=== PATIENT | female | born 1990 | race Caucasian/White ===

== ENCOUNTER 2017-06-29 00:12 | Emergency (ER) | payer SELFPAY ==
[2017-06-29 00:20] VITALS: BP 131/81; BMI 27.3
[2017-06-29] MEDS ORDERED: XYLOCAINE 1 % (PLAIN) IM ONE (00:42)
[2017-06-29] MEDS ORDERED: ADACEL TDaP IM ONE ×2 (00:42→00:44)
[2017-06-29] MEDS ORDERED: XYLOCAINE 1 % (PLAIN) ONE (00:44)
--- NOTE | 2017-06-29 00:57 | DR.GENAD ---
HPI - PCP Primary Care Physician: NFD - HPI Comment HPI Comment: PATIENTS WAS BITTEN BY A FRIENDS DOG ANNIE. PATIENT SAID, DOG IS IMMUNIZE PER HER FRIEND. PATIENTS TD IS NOT UTD. - Complaint/Symptoms Chief Complaint Doctors Comments: DOG BITE. LACERATION ON RIGHT LOWER LEG. Chief Complaint:: DOG BITE TO RIGHT LOWER LEG Self Treatment fo Chief Complaint: NONE - Nurses notes reviewed Nurses Notes Review: Yes - Source History Provided: Patient - Mode of Arrival Mode of Arrival: Ambulatory - Timing Onset of Chief Complaint: 06/29/17 Came on: Suddenly - Duration Duration: Constant Duration: Hours - Severity Severity: Moderate PMH - PMH Past Medical History: No Past Surgical History: Yes Surgical History: - Family History History of Family Medical Conditions: Yes Family Medical History: Diabetes Mellitus, Cancer, [place], Hypertension - Social History Does patient currently use any type of tobacco product: Yes Have you used tobacco products in the last 12 months: Yes Type of Tobacco Use: Cigarettes Alcohol Use: None Do you use any recreational Drugs:: No Lives With: Family Lives Where: Home - infectious screening In the last 2 months have you had wt loss of >10#?: NO Have you had fever, night sweats or hemotysis?: No Have you traveled outside the country in the last 6 months?: No Isolation: Standard ROS - Review of Systems Constitutional: No Symptoms Reported Eyes: No Symptoms Reported ENTM: No Symptoms Reported Respiratoy: No Symptoms Reported Cardiovascular: No Symptoms Reported Gastrointestinal/Abdominal: No Symptoms Reported Genitourinary: No Symptoms Reported Neurological: No Symptoms Reported Musculoskeletal: Right, Leg Integumentary: Other (RT LEG 2CM LACERATION.) Hematologic/Lymphatic: No Symptoms Reported Endocrine: No Symptoms Reported All Other Systems: Reviewed and Negative PE - Vital Signs Vitals: Temperature 98.0 F Pulse Rate 90 Respiratory Rate 14 Blood Pressure [] 102/55 Blood Pressure [] 101/61 Blood Pressure 131/81 O2 Sat by Pulse Oximetry 97 - General Limitations: No Limitations General Appearance: Alert - Head Head Exam: Normal Inspection - Eyes Eye exam: Normal Appearance - ENT ENT Exam: Normal External Ear Exam External Ear Exam: Normal External Inspection TM/Canal Exam: Bilateral Normal Nose Exam: Normal Nose Exam Mouth Exam: Normal Inspection Throat Exam: Normal Inspection - Neck Neck Exam: Trachea Midline - Chest Chest Inspection: Symmetric Chest Wall Rise - Respiratory Respiratory Exam: Normal Lung Sounds Bilat Respiratory Exam: Bilateral Clear to Auscultation - Cardiovascular Cardiovascular Exam: Regular Rate, Normal Rhythm, Normal Heart Sounds - Abdominal Exam Abdominal Exam: Normal Bowel Sounds, Soft. negative: Tenderness - Extremities Extremities Exam: Tenderness (2CM LAC LOWER RT LEG.) - Back Back Exam: Normal Inspection - Neurologic Neurological Exam: Alert - Psychiatric Psychiatric Exam: Normal Affect, Normal Mood - Skin Skin Exam: Erythema MDM - Differential Diagnosis Differential Diagnosis: DOG BITE, LACERATION RT LEG. Course - Treatment Treatment: SEE ORDERS. LAC CLOSE IN ED. - Education/Counseling Education/Counseling: Patient, Education Educated On: Diagnosis, Needs for Follow Up Procedures - Laceration/Wound Repair Right Leg Wound Length (cm): 2 Wound's Depth, Shape: Linear Wound Explored: contaminated Betadine Prep?: Yes Anesthesia: 1% Lidocaine Volume Anesthetic (ccs): 3 Wound Debrided: minimal Wound Repaired With: sutures Suture Size/Type: 4:0, [place] Number of Sutures: 3 Layer Closure?: No Sterile Dressing Applied?: Yes Splint Applied?: No Sling Applied?: No - Diagnosis Discharge Problem: Laceration of right lower leg Qualifiers: Encounter type: initial encounter Qualified Code(s): S81.811A - Laceration without foreign body, right lower leg, initial encounter Dog bite Qualifiers: Encounter type: initial encounter Qualified Code(s): W54.0XXA - Bitten by dog, initial encounter - Discharge Plan Disposition: 01 HOME, SELF-CARE Condition: Stable Prescriptions: Amoxicillin/Potassium Clav [Augmentin 875-125 Tablet] 1 tab PO Q12H #20 tab Ibuprofen [MOTRIN TAB 800 MG *] 800 mg PO Q8H PRN #30 tab PRN Reason: Pain/Inflammation - Follow ups/Referrals Follow ups/Referrals: NFD,None [Primary Care Provider] - 3 days - Instructions Instructions: Animal Bite, Laceration Care, Adult, [id number] Additional Instructions: RETURN TO ED IF WORSE. SUTURE OUT IN 10 DAYS.
[2017-06-29] MEDS ORDERED: AUGMENTIN 500 MG/125 MG TAB PO ONE ×2 (01:19→01:24)
[2017-06-29] MEDS ORDERED: MOTRIN TAB 800 MG PO ONE ×2 (01:20→01:24)
== END 2017-06-29 01:36 | disposition home or self-care (01) ==
LOC: ER 00:12
PROC: 0YQHXZZ Repair Right Lower Leg, External Approach (ICD-10-PCS; principal; 2017-06-29)
DX: S81.811A Laceration without foreign body, right lower leg, initial encounter (principal); W54.0XXA Bitten by dog, initial encounter
CPT/HCPCS: 12001; 90471; 99282; J2001

== ENCOUNTER 2017-07-14 19:48 | Emergency (ER) | payer SELFPAY ==
[2017-07-14 19:55] VITALS: BP 106/53; BMI 26.6
--- NOTE | 2017-07-14 21:51 | DR.GENAD ---
HPI - PCP Primary Care Physician: NFD - Complaint/Symptoms Chief Complaint Doctors Comments: Patient state she was bitten by her friends' dog about two weeks ago and she came to the emergency room and they put three sutures in her laceration but she did not go back to the doctor to have them removed because she thought they came out by themselves. States she has been putting a cream on the laceration and taking Amoxicillin twice daily by the lesion has gotten redder arround the edges. She denies fever, chills, nausea or vomiting. States she do not have a local doctor. Chief Complaint:: "I THINK MY DOG BITE HAS GOT INFECTED. I HAVE BEEN TAKING THE AMOXICILLIN AND PUTTING THE CREAM ON IT. THE STITCHES CAME OUT ON THEIR OWN BEFORE I HAD A CHANCE TO COME GET THEM TAKEN OUT. I HAD A STITCHES A FEW WKS AGO." NOTE POSTERIOR RIGHT LOWER LEG WITH SCAB, REDNESS AROUND AREA AND POSSIBLE 2 STITCHES STILL INTACT. - Nurses notes reviewed Nurses Notes Review: Yes - Source History Provided: Patient - Mode of Arrival Mode of Arrival: Ambulatory - Timing Onset of Chief Complaint: 07/14/17 Came on: Gradually - Duration Duration: Constant How lon Duration: Weeks - Location Location: right lower leg - Severity Severity: Mild - Modifying Factors Worsens:: nothing Improves:: nothing PMH - PMH Past Medical History: No Past Surgical History: Yes Surgical History: - Family History History of Family Medical Conditions: Yes Family Medical History: Diabetes Mellitus, Cancer, [place], Hypertension - Social History Does patient currently use any type of tobacco product: No Have you used tobacco products in the last 12 months: No Type of Tobacco Use: None Does any household member use tobacco: No Alcohol Use: None Do you use any recreational Drugs:: No Lives With: Family Lives Where: Home - infectious screening Have you traveled outside the country in the last 6 months?: No Isolation: Standard ROS - Review of Systems Constitutional: No Symptoms Reported. negative: See HPI, Chills, Diaphoresis, Fever, Malaise, Weakness, Irritable, Fatigue, Loss of Appetite, Other Eyes: No Symptoms Reported ENTM: No Symptoms Reported Respiratoy: No Symptoms Reported. negative: See HPI, Productive Cough, Non- Productive Cough, Moist Cough, Dry Cough, Hacking Cough, Barking Cough, Brassy Cough, Orthopnea, Short of Breath, Stridor, Wheezing, Hemoptysis, Other Cardiovascular: No Symptoms Reported Gastrointestinal/Abdominal: No Symptoms Reported Genitourinary: No Symptoms Reported Neurological: No Symptoms Reported Musculoskeletal: No Symptoms Reported, Right, Leg (healing laceration with scabbing) Integumentary: No Symptoms Reported, Change in Color, Lesions, Wound Hematologic/Lymphatic: No Symptoms Reported. negative: See HPI, Anemia, Blood Clots, Easy Bleeding, Easy Bruising, Swollen Glands, Lymphadenopathy, Other Endocrine: No Symptoms Reported Psychiatric: No Symptoms Reported PE - Vital Signs Vitals: Temperature 98.5 F Pulse Rate 85 Respiratory Rate 16 Blood Pressure [Right Arm] 102/55 Blood Pressure [Left Arm] 101/61 Blood Pressure 106/53 O2 Sat by Pulse Oximetry 97 - General Limitations: No Limitations General Appearance: Alert, In No Apparent Distress - Head Head Exam: Normal Inspection, Atraumatic, Normocephalic - Eyes Eye exam: Normal Appearance, PERRL, EOMI. negative: Scleral Icterus, Conjunctival Injection, Nystagmus, Miosis, Mydrasis, Periorbital Swelling, Periorbital Tenderness, Other - ENT ENT Exam: Normal Exam, Normal Oropharynx, Normal External Ear Exam, Mucous Membranes Moist, TM's Normal Bilaterally External Ear Exam: Normal External Inspection TM/Canal Exam: Bilateral Normal Nose Exam: Normal Nose Exam Mouth Exam: Normal Inspection. negative: Drooling, Trismus, Lip Swelling, Tongue Elevation, Tongue Swelling, Laceration, Other Throat Exam: Normal Inspection. negative: Tonsillar Erythema, Tonsillomegaly, Tonsillar Exudate, R Peritonsillar Mass, L Peritonsillar Mass, Muffled Voice, Other - Neck Neck Exam: Normal Inspection, Full ROM, Trachea Midline - Chest Chest Inspection: Normal Inspection, Symmetric Chest Wall Rise - Respiratory Respiratory Exam: Normal Lung Sounds Bilat. negative: Accessory Muscle Use, Chest Wall Tenderness, Prolonged Expiratory Phase, Respiratory Distress, Stridor , Other Respiratory Exam: Bilateral Clear to Auscultation - Cardiovascular Cardiovascular Exam: Regular Rate, Normal Rhythm, Normal Heart Sounds - Abdominal Exam Abdominal Exam: Normal Inspection, Normal Bowel Sounds, Soft Abdominal Tenderness: negative: RUQ, RLQ, LUQ, LLQ, Epigastrium, Suprapubic, Diffuse, Mild, Moderate, Severe, Other - Extremities Extremities Exam: Normal Inspection, Full ROM, Tenderness (right lower leg with 3 1/2 cm healing lesion with scabbing; one suture noted top of lesion), Normal Capillary Refill. negative: Edema, Joint Swelling - Back Back Exam: Normal Inspection, Full ROM, Tenderness - Neurologic Neurological Exam: Alert, Oriented X3, CN II-XII Intact, Normal Gait, Reflexes Normal - Psychiatric Psychiatric Exam: Normal Affect, Normal Mood. negative: Depressed, Agitated, Anxious, Flat Affect, Manic, Homicidal Ideation, Suicidal Ideation, Other - Skin Skin Exam: Warm, Dry, Intact, Normal Color ROR - Labs Reviewed Laboratory Results Reviewed?: Yes (all lx-ray results reviewed and discussed with patient) - XRAY XRAY Interpreted by: Radiologist (right leg: No foreign body identified.) - Diagnosis Discharge Problem: Cellulitis of right leg, Dog bite of extremity - Discharge Plan Disposition: 01 HOME, SELF-CARE Condition: Stable Prescriptions: Cephalexin [KEFLEX CAP 500 MG *] 500 mg PO TID #30 cap Sulfamethoxazole-Trimethoprim [BACTRIM DS TAB 800/160 MG *] 1 tab PO BID #20 tab - Follow ups/Referrals Follow ups/Referrals: NFD,None [Primary Care Provider] - 3 days ROS BURNETTE [STAFF PHYSICIAN] - 3 days - Instructions Instructions: Cellulitis, Adult, [id number], Animal Bite, MRSA Infection, Pediatric
--- NOTE | 2017-07-14 22:14 | RAD ---
Right tibia and fibula, two views Indication: Old dog bite to posterior calf Comparison: None Findings: No acute fracture or malalignment is identified. There appears to be a soft tissue lacerati on to the posterior inferior lower leg. No radiopaque foreign body is identified. Impression: Soft tissue injury to the posterior inferior lower leg without acute fracture or radiopaq ue foreign body. Reported By:
[2017-07-14] MEDS ORDERED: KEFLEX CAP 500 MG PO ONE ×2 (22:15→22:29)
[2017-07-14] MEDS ORDERED: BACTRIM DS TAB PO ONE ×2 (22:15→22:29)
[2017-07-14] MEDS ORDERED: NEOSPORIN OINT ONE (22:35)
== END 2017-07-14 22:37 | disposition home or self-care (01) ==
LOC: ER 19:58
DX: L03.115 Cellulitis of right lower limb (principal); S81.851A Open bite, right lower leg, initial encounter; W54.0XXA Bitten by dog, initial encounter; Y92.89 Other specified places as the place of occurrence of the external cause
CPT/HCPCS: 73590; 99282

== ENCOUNTER 2019-11-21 17:58 | Inpatient (IN) ==
[2019-11-21] MEDS ORDERED: ZOFRAN INJ 4 MG VIAL IVP ONE (20:29)
[2019-11-21] MEDS ORDERED: NS 1000 ML 1,000 ML IV ONE ×2 (20:29→20:35)
[2019-11-21] MEDS ORDERED: CIPRO IV 400 MG PREMIX* 400 MG/200 ML IV.SOLN. IV ONE ×2 (20:32→20:53)
--- NOTE | 2019-11-21 20:35 | DR.URINEF ---
HPI Time Seen Time Seen by Provider: 11/21/19 20:24 PCP Primary Care Physician: JUDITH HPI Comment HPI Comment: Discharged from [facility] after left ureteral stenting 2 weeks ago on Keflex PO, now with fever, vomiting, weakness, chills. Previously placed right ureteral stent. Currently menstruating, denies tampon use. Complaint Chief Complaint:: PT C/O FEVER , ( 104,0 ) PT TAKING ABX FOR UTI AND RECENTS STENTS PLACED FOR RENAL STONES ,BR N/V CAN'T KEEP ANYTHING DOWN ..BR COVID-19 Coronavirus risk:travel/contact w/high risk person: No Has patient experienced Coronavirus symptoms: No Source History Provided: Patient Mode of Arrival Mode of Arrival: Ambulatory Timing Onset of Chief Complaint: 11/21/19 PMH PMH Past Medical History: Yes Past Medical History: Kidney Stones Past Surgical History: Yes Surgical History: Lithotripsy Family History History of Family Medical Conditions: No Family Medical History: Diabetes Mellitus Social History Does patient currently use any type of tobacco product: No Have you used tobacco products in the last 12 months: No Type of Tobacco Use: None Does any household member use tobacco: No Alcohol Use: None Do you use any recreational Drugs:: No Lives With: Family Lives Where: Home Travel Risk Coronavirus risk:travel/contact w/high risk person: No Has patient experienced Coronavirus symptoms: No Infectious screening In the last 2 months have you had wt loss of >10#?: NO Have you had fever, night sweats or hemotysis?: No Have you traveled outside the country in the last 6 months?: No Isolation: Standard ROS Review of Systems Constitutional: See HPI Eyes: No Symptoms Reported ENTM: No Symptoms Reported Respiratoy: No Symptoms Reported Cardiovascular: No Symptoms Reported Gastrointestinal/Abdominal: See HPI Genitourinary: No Symptoms Reported Neurological: No Symptoms Reported Musculoskeletal: No Symptoms Reported Integumentary: No Symptoms Reported Hematologic/Lymphatic: No Symptoms Reported Endocrine: No Symptoms Reported Psychiatric: No Symptoms Reported All Other Systems: Reviewed and Negative PE Vital Signs Vitals: Temperature 99.5 F Pulse Rate 118 Respiratory Rate 20 Blood Pressure [Right Arm] 110/88 Blood Pressure [Left Arm] 101/61 Blood Pressure 117/64 O2 Sat by Pulse Oximetry 94 General Limitations: No Limitations General Appearance: Lethargic and Other (Toxic appearing) Eyes Eye exam: Normal Appearance ENT ENT Exam: Normal Exam Neck Neck Exam: Normal Inspection Chest Chest Inspection: Normal Inspection Respiratory Respiratory Exam: Normal Lung Sounds Bilat Respiratory Exam: Bilateral: Clear to Auscultation Cardiovascular Cardiovascular Exam: Normal Rhythm and Tachycardia Abdominal Exam Abdominal Exam: Normal Inspection, Normal Bowel Sounds and Soft Rectal Rectal Exam: Deferred Genitourinary External Exam: Female: Deferred : Speculum Exam (Female): Deferred : Bimanual Exam (female): Deferred Extremities Extremities Exam: Normal Inspection Back Back Exam: Normal Inspection and Full ROM; negative (R) CVA Tenderness and (L) CVA Tenderness Neurologic Neurological Exam: Alert and Oriented X3 Psychiatric Psychiatric Exam: Normal Affect and Normal Mood Skin Skin Exam: Warm, Dry, Intact and Normal Color COURSE Treatment Treatment: Fluids immediately started, tachycardia improved. Patient with borderline BP, lekocytosis of 29 (change from 19 yesterday), and DUGLAS 1.68 (yesterday 1.49). She is tachycardic 125. Meets both SIRS and qSOFA x 2 criteria for sepsis, lactate 2.1. Cipro and Vanc given empirically. Concern for stents as a source, and no urology clinical operations consultant at our facility for source control. CT AB limited with no contrast, however, no eric fluid collections concerning for abscess, nor hydronephrosis concerning for obstructive uropathy is seen. [facility] denies transfer back due to diversion. Spoke with Dr. Ram, urology @ [facility] who said it is out of his hands if his institution won't accept the patient. Attempted multiple institutions with materials planning analyst services and all were on divert. Discussed the case with hospitalist Dr. Scherer, and he agreed to accept to ICU, as no higher level facility is available in our area at this time. Reevaluation 1st: Improved ROR Labs Reviewed Result Diagrams: 11/21/19 20:45 11/21/19 20:45 Laboratory: WBC 29.1 X10^3/uL (3.6-10.0) H D 11/21/19 20:45 RBC 4.72 X10^6/uL (3.5-5.4) 11/21/19 20:45 Hgb 13.3 g/dL (12.0-16.0) 11/21/19 20:45 Hct 39.2 % (36.0-47.0) 11/21/19 20:45 MCV 83.1 fL (80.0-100.0) 11/21/19 20:45 MCH 28.1 pg (27.0-34.0) 11/21/19 20:45 MCHC 33.8 g/dL (33.0-35.0) 11/21/19 20:45 RDW 15.2 % (11.6-16.5) 11/21/19 20:45 Plt Count 311 X10^3/uL (150.0-450.0) 11/21/19 20:45 Plt Count Comment Adequate (ADEQUATE) 11/21/19 20:45 MPV 8.2 fL (7.4-11.0) 11/21/19 20:45 Neut % (Auto) 89.2 % (42.0-75.0) H 11/21/19 20:45 Lymph % (Auto) 5.7 % (21.0-51.0) L 11/21/19 20:45 [place] % (Auto) 4.7 % (0.0-13.0) 11/21/19 20:45 Eos % (Auto) 0.0 % (0.9-2.9) L 11/21/19 20:45 Baso % (Auto) 0.4 % (0.2-1.0) 11/21/19 20:45 Neut # (Auto) 26.0 x10^3/uL (2.2-4.8) H 11/21/19 20:45 Lymph # (Auto) 1.7 X10^3/uL (1.3-2.9) 11/21/19 20:45 [place] # (Auto) 1.4 x10^3/uL (0.3-0.8) H 11/21/19 20:45 Eos # (Auto) 0.0 x10^3/uL (0.0-0.2) 11/21/19 20:45 Baso # (Auto) 0.1 X10^3/uL (0.0-0.1) 11/21/19 20:45 Absolute Nucleated RBC 0.1 /100WBC 11/21/19 20:45 Total Counted 100 11/21/19 20:45 Neutrophils % (Manual) 80 % (39-76) H 11/21/19 20:45 Band Neutrophils % 7 % (0-10) 11/21/19 20:45 Lymphocytes % (Manual) 7 % (13-43) L 11/21/19 20:45 Monocytes % (Manual) 4 % (4-9) 11/21/19 20:45 Metamyelocytes % 1 11/21/19 20:45 Myelocytes % 1 11/21/19 20:45 Plt Morphology Comment Normal (NORMAL) 11/21/19 20:45 RBC Morphology Normal (NORMAL) 11/21/19 20:45 Sodium 122 mmol/L (136-145) L* 11/21/19 20:45 Corrected Sodium 123 mmol/L (136-145) L 11/21/19 20:45 Potassium 3.0 mmol/L (3.5-5.1) L* 11/21/19 20:45 Chloride 90 mmol/L (98-107) L 11/21/19 20:45 Carbon Dioxide 24.0 mmol/L (21-32) 11/21/19 20:45 BUN 11 mg/dL (7-18) 11/21/19 20:45 Creatinine 1.68 mg/dL (0.55-1.02) H 11/21/19 20:45 Est GFR (MDRD) Af Amer 46 (>60) L 11/21/19 20:45 Est GFR (MDRD) Non-Af 38 (>60) L 11/21/19 20:45 Glucose 125 mg/dL (65-99) H 11/21/19 20:45 Lactic Acid 2.1 mmol/L (0.4-2.0) H 11/21/19 20:45 Calcium 8.4 mg/dL (8.5-10.1) L 11/21/19 20:45 Corrected Calcium 9.0 mg/dL (8.5-10.1) 11/21/19 20:45 Magnesium 1.0 mg/dL (1.7-2.9) L 11/21/19 20:45 Total Bilirubin 0.60 mg/dL (0.2-1.0) 11/21/19 20:45 AST 25 Units/L (15-37) 11/21/19 20:45 ALT 31 Units/L (12-78) 11/21/19 20:45 Alkaline Phosphatase 120 Units/L (46-116) H 11/21/19 20:45 Total Protein 7.7 g/dL (6.4-8.2) 11/21/19 20:45 Albumin 3.2 g/dL (3.4-5.0) L 11/21/19 20:45 Globulin 4.5 g/dL (2.5-4.5) 11/21/19 20:45 Albumin/Globulin Ratio 0.7 Ratio (1.1-2.1) L 11/21/19 20:45 Lipase 72 Units/L (73-393) L 11/21/19 20:45 SARS-CoV-2 (PCR) Negative (NEGATIVE) 11/21/19 23:45 EKG [place]: Normal Rhythm: NSR Block: None Hypertrophy: None ST: Normal Opioid Opioid Risk Tool Age (Javier box if 16-45): No History of Preadolescent Sexual Abuse: No Total: 0 Total Score Risk Category: Low Risk Copyright: Zechariah LUQUE predicting aberrant behaviors Diagnosis Discharge Problem: Hypokalemia, Acute hyponatremia, Hypomagnesemia Sepsis Qualifiers: Sepsis type: sepsis due to unspecified organism Sepsis acute organ dysfunction status: with acute organ dysfunction Severe sepsis acute organ dysfunction type: acute renal failure Acute renal failure type: unspecified Severe sepsis shock status: unspecified Qualified Code(s): A41.9 - Sepsis, unspecified organism
[2019-11-21] MEDS ORDERED: ZOFRAN INJ 4 MG VIAL ONE (20:52)
[2019-11-21] MEDS ORDERED: NS 1000 ML 1,000 ML ONE ×2 (20:52→23:18)
[2019-11-21 21:01] LABS: BASOPHILS # (AUTO) 0.1 X10^3/uL (0.0-0.1); BASOPHILS % (AUTO) 0.4 % (0.2-1.0); HEMATOCRIT 39.2 % (36.0-47.0); HEMOGLOBIN 13.3 g/dL (12.0-16.0); LYMPHOCYTES # (AUTO) 1.7 X10^3/uL (1.3-2.9); LYMPHOCYTES % (AUTO) 5.7 % (21.0-51.0); MEAN CORPUSCULAR HEMOGLOBIN 28.1 pg (27.0-34.0); MEAN CORPUSCULAR HGB CONC 33.8 g/dL (33.0-35.0); MEAN CORPUSCULAR VOLUME 83.1 fL (80.0-100.0); MEAN PLATELET VOLUME 8.2 fL (7.4-11.0); MONOCYTES # (AUTO) 1.4 x10^3/uL (0.3-0.8); MONOCYTES % (AUTO) 4.7 % (0.0-13.0); NEUTROPHILS % (AUTO) 89.2 % (42.0-75.0); PLATELET COUNT 311 X10^3/uL (150.0-450.0); RED BLOOD COUNT 4.72 X10^6/uL (3.5-5.4); RED CELL DISTRIBUTION WIDTH 15.2 % (11.6-16.5); WHITE BLOOD COUNT 29.1 X10^3/uL (3.6-10.0)
[2019-11-21 21:19] LABS: CALCIUM 8.4 mg/dL (8.5-10.1); CREATININE 1.68 mg/dL (0.55-1.02)
[2019-11-21 21:23] LABS: ALBUMIN 3.2 g/dL (3.4-5.0); TOTAL PROTEIN 7.7 g/dL (6.4-8.2)
[2019-11-21 21:24] LABS: LACTIC ACID 2.1 mmol/L (0.4-2.0)
[2019-11-21 21:33] LABS: BAND NEUTROPHILS % 7 % (0-10); METAMYELOCYTES % 1; MYELOCYTES % 1; PLATELET MORPHOLOGY COMMENT NORMAL (NORMAL)
[2019-11-21] MEDS ORDERED: MAGNESIUM SULFATE 50% INJ VIAL IV ONE (21:33)
[2019-11-21] MEDS ORDERED: VANCOMYCIN IV *PREMIX 1 G/200 ML BAG 1 G/200 ML PIGGYBACK IV ONE (21:46)
[2019-11-21] MEDS ORDERED: MAGNESIUM SULFATE 1 GRAM/100 mL PREMIX 2 G/200 ML BAG IV ONE (22:05)
--- NOTE | 2019-11-21 22:56 | CT ---
HISTORYabcess, utiSTUDYABDOMEN/PELVIS W/O [id number] axial images of the abdomen and pelvis were obtained from the lung bases to the pubic symphysis without IV contrast. Coronal and sagittal reformats obtained. Dose reduction techniques including Automated Exposure Control (AEC) and adjustment of mA and kV were utilized.FINDINGSLack of intravenous contrast compromises evaluation of solid organs and vasculature.Thoracic: Included images of the lower chest demonstrate no abnormalities.Hepatobiliary: The liver is unremarkable without focal lesion. Question layering sludge within the gallbladder.Pancreas: No abnormality identified in the pancreas.Spleen: No abnormality identified in the spleen.Adrenals: No abnormality identified in either adrenal glandGenitourinary: Nonspecific mild bilateral perinephric stranding. Interval placement of a right nephroureteral stent with significant decrease and right perinephric stranding/inflammatory changes. 9 mm soft tissue nodule posterior to the right kidney. Again seen are numerous bilateral renal stones. Left nephroureteral stent in place. No hydronephrosis of either kidneys. Along the distal stent bilaterally, there ureteral stones, measuring 6 mm on the right and 7 mm on the left.. evaluation of the bladder is limited, but no obvious bladder abnormality is present. Uterus is present.Gastrointestinal: Air-fluid levels seen throughout the colon. No colonic wall thickening or pericolonic inflammatory changes. No small bowel dilatation. The appendix is normal .Vascular/Lymphatics: No bulky adenopathy. Abdominal aorta is normal in caliber. No atherosclerotic calcification.Peritoneum/Other: [No extraluminal air.] [No extraluminal fluid. ]MSK/Body Wall: No concerning bony lesion identified.IMPRESSIONInterval placement of a right nephroureteral stent with significant decrease in perinephric stranding. Stable position of a left nephroureteral stent. Distal ureteral stones noted bilaterally, as detailed, without hydronephrosis or hydroureter identified.Numerous bilateral renal stones again seen.Air-fluid levels seen throughout the colon may be correlated clinically for diarrheal state. No colonic wall thickening or pericolonic inflammatory changes.Ancillary findings as detailed.Electronically signed by: Augusta Hassan (Nov 21, 2019 22:55:16)
[2019-11-21] MEDS ORDERED: VANCOMYCIN 1 GRAM PREMIX (ADDVANTAGE) 250 ML IV ONE (23:30)
[2019-11-22] MEDS: NS 1000 ML 1,000 ML IV SCH ×5 (00:41→23:09)
[2019-11-22] MEDS ORDERED: POTASSIUM CHL 40 MEQ/NS 0.45% 500 ML 40 MEQ/500 ML BAG IV PRN (01:02)
[2019-11-22] MEDS ORDERED: PHARMACY CONSULT - VANCOMYCIN XX SCH (01:02)
[2019-11-22] MEDS ORDERED: MAGNESIUM SULFATE 50% INJ VIAL IV ONE (01:02)
[2019-11-22] MEDS ORDERED: ZOFRAN INJ 4 MG VIAL IVP PRN (01:02)
[2019-11-22] MEDS ORDERED: MERREM VIAL 1 G in NS 100 ML IV + SPIKE MINIBAG* 100 ML IV SCH ×2 (01:02→09:00)
--- NOTE | 2019-11-22 01:53 | RAD ---
Chest AP portableIndication: SepsisComparison November 20, 2019FINDINGSThere is no pneumothorax, effusion or dense consolidation. Heart size is normal.IMPRESSIONNo acute chest process.Electronically signed by: COOKIE MUÑOZ (Nov 22, 2019 01:52:20)
[2019-11-22] MEDS ORDERED: MAGNESIUM SULFATE 1 GRAM/100 mL PREMIX 2 G/200 ML BAG IV ONE (02:16)
[2019-11-22] MEDS ORDERED: TYLENOL 500 MG TAB EXTRA STRENGTH PO ONE (02:18)
[2019-11-22] MEDS ORDERED: MERREM VIAL ONE (02:18)
[2019-11-22] MEDS ORDERED: NS 100 ML IV 0 ML IV ONE (02:19)
[2019-11-22] MEDS ORDERED: NS 100 ML IV + SPIKE MINIBAG* 100 ML IV ONE (02:33)
[2019-11-22] MEDS: TYLENOL 500 MG TAB EXTRA STRENGTH PO PRN (02:43)
[2019-11-22 03:36] LABS: BILIRUBIN,URINE NEGATIVE (NEGATIVE); BLOOD/HEMOGLOBIN,URINE 4+ (NEGATIVE); GLUCOSE, URINE NEGATIVE (NEGATIVE); KETONES,URINE NEGATIVE (NEGATIVE); LEUKOCYTE ESTERASE ,URINE 3+ (NEGATIVE); NITRITES,URINE POSITIVE (NEGATIVE); PROTEIN,URINE 2+ (NEGATIVE); UROBILINOGEN,URINE NORMAL (NORMAL)
[2019-11-22 03:38] LABS: CREATININE,URINE 75.47 mg/dL (29-226); SODIUM,URINE 29 mmol/L (40-220)
[2019-11-22 03:47] LABS: APPEARANCE,URINE CLOUDY (CLEAR); COLOR,URINE PALE YELLOW (YELLOW)
[2019-11-22 03:48] LABS: BACTERIA,URINE 3+ /HPF (NEGATIVE); RBC,URINE 0-2 /HPF (0-3); SQUAMOUS EPITHELIAL CELL,UR FEW /HPF (NEGATIVE)
[2019-11-22] MEDS ORDERED: K-RIDER 10 MEQ/NS 100 ML 10 MEQ/100 ML BAG IV ONE (04:48)
[2019-11-22] MEDS ORDERED: K-RIDER 10 MEQ/NS 100 ML 10 MEQ/100 ML BAG IV PRN (05:02)
[2019-11-22] MEDS ORDERED: K-DUR TAB 20 MEQ PO ONE (05:31)
[2019-11-22 05:51] LABS: BASOPHILS # (AUTO) 0.1 X10^3/uL (0.0-0.1); BASOPHILS % (AUTO) 0.6 % (0.2-1.0); HEMATOCRIT 32.8 % (36.0-47.0); HEMOGLOBIN 11.1 g/dL (12.0-16.0); LYMPHOCYTES # (AUTO) 1.1 X10^3/uL (1.3-2.9); LYMPHOCYTES % (AUTO) 5.2 % (21.0-51.0); MEAN CORPUSCULAR HEMOGLOBIN 27.9 pg (27.0-34.0); MEAN CORPUSCULAR HGB CONC 33.9 g/dL (33.0-35.0); MEAN CORPUSCULAR VOLUME 82.3 fL (80.0-100.0); MEAN PLATELET VOLUME 9.1 fL (7.4-11.0); MONOCYTES # (AUTO) 1.5 x10^3/uL (0.3-0.8); MONOCYTES % (AUTO) 7.3 % (0.0-13.0); NEUTROPHILS # (AUTO) 18.5 x10^3/uL (2.2-4.8); NEUTROPHILS % (AUTO) 86.9 % (42.0-75.0); PLATELET COUNT 260 X10^3/uL (150.0-450.0); RED BLOOD COUNT 3.98 X10^6/uL (3.5-5.4); RED CELL DISTRIBUTION WIDTH 14.8 % (11.6-16.5); WHITE BLOOD COUNT 21.2 X10^3/uL (3.6-10.0)
[2019-11-22 05:54] LABS: ALBUMIN 2.6 g/dL (3.4-5.0); CALCIUM 7.9 mg/dL (8.5-10.1); CREATININE 1.67 mg/dL (0.55-1.02); MAGNESIUM 2.3 mg/dL (1.7-2.9); TOTAL PROTEIN 6.3 g/dL (6.4-8.2)
[2019-11-22] MEDS: K-DUR TAB 20 MEQ PO PRN ×2 (05:55→08:53)
[2019-11-22 06:43] LABS: PLATELET MORPHOLOGY COMMENT NORMAL (NORMAL)
[2019-11-22] MEDS ORDERED: FIORICET TAB PO PRN (10:08)
[2019-11-22] MEDS: LEVAQUIN PREMIX IV 750 MG 750 MG/150 ML BAG IV SCH (11:00)
[2019-11-22] MEDS: FORTAZ or TAZICEF VIAL INJ 1 G in NS 100 ML IV + SPIKE MINIBAG* 100 ML IV SCH ×3 (11:00→22:00)
[2019-11-22] MEDS: TORADOL 30 MG VIAL IVP SCH ×2 (11:01→21:00)
--- NOTE | 2019-11-22 13:50 | DR.H&P ---
H&P - History & Physical for Day of: H&P Date: 11/22/19 - Chief Complaint Chief Complaint: FEVER, NAUSEA, VOMITING - History of Present Illness History of Present Illness: IS A 29 YEAR OLD PATIENT OF OURS WHO PRESENTED TO THE ER WITH COMPLAINTS OF FEVER, NAUSEA, AND VOMITING. SYMPTOMS REPORTEDLY STARTED ONE DAY PRIOR. PATIENT REPORTS PLACEMENT OF A LEFT URETERAL STONE APPROXIMATELY TWO WEEKS AGO. SHE ALSO HAS A PREVIOUSLY PLACED RIGHT URETERAL STENT. SHE HAS BEEN TAKING KEFLEX PO FOR TREATMENT OF A URINARY TRACT INFECTION. SHE ADMITS TO FEVER OF 104.0 AT HOME. SHE DENIES PMH OTHER THAN KIDNEY STONES AND LITHROTRIPSY. ON ARRIVAL TO THE ER, VITALS WERE 99.5-118-20-99%-114/56. LABS WERE OBTAINED. ABNORMAL LAB VALUES INCLUDE THE FOLLOWING: WBC 29.1, SODIUM 122, POTASSIUM 3.0, CHLORIDE 90, CREATININE 1.68, GLUCOSE 125, LACTIC ACID 2.1, CALCIUM 8.4, ALK PHOS 120, ALBUMIN 3.2, LIPASE 72. A URINALYSIS WAS OBTAINED AND REVEALED: WBC TNTC, RBC 0-2, LEUKOCYTES 3+, BACTERIA 3+, NITRITE POSITIVE. URINE AND BLOOD CULTURES WERE SET UP. AN ABDOMEN/PELVIS CT WITHOUT CONTRAST WAS OBTAINED AND REVEALED: Interval placement of a right nephroureteral stent with significant decrease in perinephric stranding. Stable position of a left nephroureteral stent. Distal ureteral stones noted bilaterally, as detailed, without hydronephrosis or hydroureter identified. Numerous bilateral renal stones again seen. Air-fluid levels seen throughout the colon may be correlated clinically for diarrheal state. No colonic wall thickening or pericolonic inflammatory changes. A CHEST XRAY WAS OBTAINED AND REVEALED: No acute chest process. HER MAGNESIUM WAS REPLACED IN THE ER. SHE WAS ALSO GIVEN MEROPENEM 1G IV X 1, CIPRO 400MG IV X 1, ZOFRAN 4MG IV X 1, AND (2) ONE LITER NORMAL SALINE BOLUSES IN THE ER. THE ER ATTEMPTED TO TRANSFER LIZZ FOR NEPHROLOGY CONSULT TO MULTIPLE FACILITIES, HOWEVER, ALL WERE ON DIVERSION. SHE WAS ADMITTED FOR FURTHER EVALUATION AND TREATMENT OF SEPSIS, UTI, DUGLAS, HYPOMAGNESEMIA, AND HYPONATREMIA. SHE WAS STARTED ON NS AT 200 ML/HR, THE POTASSIUM PROTOCOL, ZOFRAN 4MG IV Q6H PRN, LEVAQUIN 750MG IV DAILY, FORTAZ 1G IV DAILY, AND TORADOL 30MG IV Q8H. OTHERWISE, WE PLAN TO FOLLOW UP WITH AM LABS AND CONTINUE TO MONITOR. - Past Medical History Past Medical History: Kidney Stones - Past Surgical History Surgical History: , Lithotripsy - Family History Family Medical History: Diabetes Mellitus - Social History Does patient currently use any type of tobacco product: Yes Have you used tobacco products in the last 12 months: Yes Type of Tobacco Use: Cigarettes Does any household member use tobacco: No Alcohol Use: None Drug Use: None - Medications Home Medications: No Known Drug Allergies Allergy (Verified 11/21/19 18:01) CONTINUE taking the following medications cephalexin 500 mg PO QID 11/22/19 [History] oxycodone-acetaminophen [Percocet] 1 tab PO Q8H PRN 11/22/19 [History] - Review of Systems Constitutional: Fever, Chills, Weakness Eyes: No Symptoms Reported ENT: No Symptoms Reported Respiratory: No Symptoms Reported Cardiovascular: No Symptoms Reported Gastrointestinal: Nausea, Vomiting Genitourinary: No Symptoms Reported Musculoskeletal: No Symptoms Reported Skin: No Symptoms Reported Neurological: Weakness - Physical Exam Vital Signs: Temperature 99.3 F Pulse Rate [Left] 101 Pulse Rate 118 Respiratory Rate 18 Blood Pressure [Right Arm] 104/63 Blood Pressure [Left Arm] 101/61 Blood Pressure 110/88 O2 Sat by Pulse Oximetry 99 Oriented: Normal Eyes: Normal Ear: Normal Nose: Normal Throat: Normal Respiratory: Diminished Throughout Cardiovascular: Normal : Normal Auscultation: Bowel Sounds: Normal Palpation: Normal Tenderness: Suprapubic, Mild Skin: Normal Musculoskeletal: Normal Psychiatric: Normal Mood Description: Calm Affect: Normal Speech Pattern: Clear - Assessment/Plan (1) Sepsis Qualifiers: Sepsis type: sepsis due to unspecified organism Sepsis acute organ dysfunction status: with acute organ dysfunction Severe sepsis acute organ dysfunction type: acute renal failure Acute renal failure type: unspecified Severe sepsis shock status: unspecified Qualified Code(s): A41.9 - Sepsis, unspecified organism; R65.20 - Severe sepsis without septic shock; N17.9 - Acute kidney failure, unspecified Status: Acute Plan: ADMIT, NS AT 200 ML/HR, THE POTASSIUM PROTOCOL, ZOFRAN 4MG IV Q6H PRN, LEVAQUIN 750MG IV DAILY, FORTAZ 1G IV DAILY, AND TORADOL 30MG IV Q8H (2) Leukocytosis Qualifiers: Leukocytosis type: unspecified Qualified Code(s): D72.829 - Elevated white blood cell count, unspecified Status: Acute (3) UTI (urinary tract infection) Qualifiers: Urinary tract infection type: site unspecified Hematuria presence: with hematuria Qualified Code(s): N39.0 - Urinary tract infection, site not specified; R31.9 - Hematuria, unspecified Status: Acute (4) Hypokalemia Status: Acute (5) Acute hyponatremia Status: Acute (6) Hypomagnesemia Status: Acute - Allergies Allergies/Adverse Reactions: Allergies Allergy/AdvReac Type Severity Reaction Status Date / Time No Known Drug Allergies Allergy Verified 11/21/19 18:01
[2019-11-22] MEDS ORDERED: VANCOMYCIN HCL 250 MG, VANCOMYCIN HCL 1 G in D5W 250 ML IV 250 ML IV SCH (16:00)
[2019-11-22 16:09] VITALS: BMI 38.6
[2019-11-22] MEDS ORDERED: VANCOMYCIN HCL 500 MG, VANCOMYCIN HCL 1 G in D5W 250 ML IV 250 ML IV SCH (21:00)
[2019-11-23] MEDS: TYLENOL 500 MG TAB EXTRA STRENGTH PO PRN (01:00)
[2019-11-23] MEDS: TORADOL 30 MG VIAL IVP SCH ×3 (02:27→18:43)
[2019-11-23] MEDS: NS 1000 ML 1,000 ML IV SCH ×4 (04:38→22:24)
[2019-11-23] MEDS ORDERED: FORTAZ or TAZICEF VIAL INJ ONE (04:57)
[2019-11-23] MEDS ORDERED: NS 100 ML IV 100 ML IV ONE (04:57)
[2019-11-23] MEDS: FORTAZ or TAZICEF VIAL INJ 1 G in NS 100 ML IV + SPIKE MINIBAG* 100 ML IV SCH ×3 (05:07→22:23)
[2019-11-23 05:13] LABS: BASOPHILS # (AUTO) 0.1 X10^3/uL (0.0-0.1); BASOPHILS % (AUTO) 0.7 % (0.2-1.0); EOSINOPHILS % (AUTO) 0.2 % (0.9-2.9); HEMATOCRIT 31.2 % (36.0-47.0); HEMOGLOBIN 10.8 g/dL (12.0-16.0); LYMPHOCYTES # (AUTO) 1.6 X10^3/uL (1.3-2.9); LYMPHOCYTES % (AUTO) 14.9 % (21.0-51.0); MEAN CORPUSCULAR HEMOGLOBIN 28.8 pg (27.0-34.0); MEAN CORPUSCULAR HGB CONC 34.5 g/dL (33.0-35.0); MEAN CORPUSCULAR VOLUME 83.3 fL (80.0-100.0); MEAN PLATELET VOLUME 9.1 fL (7.4-11.0); MONOCYTES # (AUTO) 1.1 x10^3/uL (0.3-0.8); MONOCYTES % (AUTO) 10.1 % (0.0-13.0); NEUTROPHILS # (AUTO) 8.1 x10^3/uL (2.2-4.8); NEUTROPHILS % (AUTO) 74.1 % (42.0-75.0); PLATELET COUNT 234 X10^3/uL (150.0-450.0); RED BLOOD COUNT 3.74 X10^6/uL (3.5-5.4); RED CELL DISTRIBUTION WIDTH 14.7 % (11.6-16.5); WHITE BLOOD COUNT 10.9 X10^3/uL (3.6-10.0)
[2019-11-23 05:30] LABS: ALBUMIN 2.2 g/dL (3.4-5.0); CALCIUM 7.7 mg/dL (8.5-10.1); CARBON DIOXIDE 22.8 mmol/L (21-32); COR CA(FOR HYPOALB) 9.1 mg/dL (8.5-10.1); CREATININE 1.4 mg/dL (0.55-1.02); TOTAL PROTEIN 5.8 g/dL (6.4-8.2)
[2019-11-23] MEDS: LEVAQUIN PREMIX IV 750 MG 750 MG/150 ML BAG IV SCH (10:21)
--- NOTE | 2019-11-23 11:34 | PCM.PROG ---
Progress Note Progress Note for Day of Date of Exam: 11/23/19 Subjective Subjective: PT IS A 29 Y/O F ADMITTED FOR SEPSIS, UTI, DUGLAS, AND HYPONATREMIA. THIS MORNING SHE IS RESTING IN BED WITHOUT ANY CONCERNS. LABS/IMAGING: WBC 21.2>10.9, HGB 11.1>10.8, PLT 260>234, NA 137, K 3.5, CR 1.67>1.40, GLUC 123, UA:WBC TNTC, RBC 0-2, LEUKOCYTES 3+, BACTERIA 3+, NITRITE POSITIVE. URINECX AND BLOODCX NGTD. CONTINUE ABX LEVAQUIN 750MG IV DAILY, FORTAZ 1G IV DAILY, AND TORADOL 30MG IV Q8H. SHE IS ON IVF NS@200ML/H WILL DECREASE TO 125ML/H. CONTINUE TO MONITOR AND FOLLOW UP LABS/IMAGING IN THE MORNING. Past Medical Family Social History Past Med/Fam/Surg Hx: No changes since H&P Allergies: Allergies No Known Drug Allergies Allergy (Verified 11/21/19 18:01) Review of Systems ROS: No change since H&P Vital Signs and I&O's Vital Signs: Temperature 99.4 F Pulse Rate [Left] 66 Pulse Rate 118 Respiratory Rate 18 Blood Pressure [Right Arm] 88/58 Blood Pressure [Left Arm] 101/61 Blood Pressure 110/88 O2 Sat by Pulse Oximetry 97 Intake and Output: Intake & Output 11/20/19 11/21/19 11/22/19 11/23/19 23:59 23:59 23:59 23:59 Intake Total 2250 / 6659 2320 / 2320 Balance 3969 / 3969 2320 / 2320 Physical Exam Oriented: Normal Eyes: Normal Ear: Normal Nose: Normal Throat: Normal Cardiovascular: Normal : Normal Auscultation: Bowel Sounds: Normal Tenderness: Suprapubic and Mild Skin: Normal Musculoskeletal: Normal Psychiatric: Normal Mood Description: Calm Affect: Normal Speech Pattern: Clear and Appropriate Laboratory and Diagnostics Result Diagrams: 11/23/19 04:30 11/23/19 04:30 Labs: 11/22/19 02:50 Urine,Clean Catch Urine Culture - Preliminary 11/21/19 20:52 Blood Blood Culture - Preliminary 11/21/19 20:45 Blood Blood Culture - Preliminary Laboratory WBC 10.9 X10^3/uL (3.6-10.0) H D 11/23/19 04:30 RBC 3.74 X10^6/uL (3.5-5.4) 11/23/19 04:30 Hgb 10.8 g/dL (12.0-16.0) L 11/23/19 04:30 Hct 31.2 % (36.0-47.0) L 11/23/19 04:30 MCV 83.3 fL (80.0-100.0) 11/23/19 04:30 MCH 28.8 pg (27.0-34.0) 11/23/19 04:30 MCHC 34.5 g/dL (33.0-35.0) 11/23/19 04:30 RDW 14.7 % (11.6-16.5) 11/23/19 04:30 Plt Count 234 X10^3/uL (150.0-450.0) 11/23/19 04:30 Plt Count Comment Adequate (ADEQUATE) 11/22/19 03:59 MPV 9.1 fL (7.4-11.0) 11/23/19 04:30 Neut % (Auto) 74.1 % (42.0-75.0) 11/23/19 04:30 Lymph % (Auto) 14.9 % (21.0-51.0) L 11/23/19 04:30 [place] % (Auto) 10.1 % (0.0-13.0) 11/23/19 04:30 Eos % (Auto) 0.2 % (0.9-2.9) L 11/23/19 04:30 Baso % (Auto) 0.7 % (0.2-1.0) 11/23/19 04:30 Neut # (Auto) 8.1 x10^3/uL (2.2-4.8) H 11/23/19 04:30 Lymph # (Auto) 1.6 X10^3/uL (1.3-2.9) 11/23/19 04:30 [place] # (Auto) 1.1 x10^3/uL (0.3-0.8) H 11/23/19 04:30 Eos # (Auto) 0.0 x10^3/uL (0.0-0.2) 11/23/19 04:30 Baso # (Auto) 0.1 X10^3/uL (0.0-0.1) 11/23/19 04:30 Absolute Nucleated RBC 0.0 /100WBC 11/23/19 04:30 Total Counted 100 11/22/19 03:59 Neutrophils % (Manual) 85 % (39-76) H 11/22/19 03:59 Band Neutrophils % 7 % (0-10) 11/21/19 20:45 Lymphocytes % (Manual) 11 % (13-43) L 11/22/19 03:59 Monocytes % (Manual) 4 % (4-9) 11/22/19 03:59 Metamyelocytes % 1 11/21/19 20:45 Myelocytes % 1 11/21/19 20:45 Plt Morphology Comment Normal (NORMAL) 11/22/19 03:59 RBC Morphology Normal (NORMAL) 11/22/19 03:59 Sodium 137 mmol/L (136-145) 11/23/19 04:30 Corrected Sodium 138 mmol/L (136-145) 11/23/19 04:30 Potassium 3.5 mmol/L (3.5-5.1) 11/23/19 04:30 Chloride 105 mmol/L (98-107) 11/23/19 04:30 Carbon Dioxide 22.8 mmol/L (21-32) 11/23/19 04:30 BUN 12 mg/dL (7-18) 11/23/19 04:30 Creatinine 1.40 mg/dL (0.55-1.02) H 11/23/19 04:30 Est GFR (MDRD) Af Amer 57 (>60) L 11/23/19 04:30 Est GFR (MDRD) Non-Af 47 (>60) L 11/23/19 04:30 Glucose 123 mg/dL (65-99) H 11/23/19 04:30 Lactic Acid 1.1 mmol/L (0.4-2.0) 11/22/19 01:09 Calcium 7.7 mg/dL (8.5-10.1) L 11/23/19 04:30 Corrected Calcium 9.1 mg/dL (8.5-10.1) 11/23/19 04:30 Magnesium 2.3 mg/dL (1.7-2.9) 11/22/19 03:59 Total Bilirubin 0.20 mg/dL (0.2-1.0) 11/23/19 04:30 AST 26 Units/L (15-37) 11/23/19 04:30 ALT 30 Units/L (12-78) 11/23/19 04:30 Alkaline Phosphatase 76 Units/L (46-116) 11/23/19 04:30 C-Reactive Protein 211.20 mg/L (0-3.0) H 11/23/19 04:30 Total Protein 5.8 g/dL (6.4-8.2) L 11/23/19 04:30 Albumin 2.2 g/dL (3.4-5.0) L 11/23/19 04:30 Globulin 3.6 g/dL (2.5-4.5) 11/23/19 04:30 Albumin/Globulin Ratio 0.6 Ratio (1.1-2.1) L 11/23/19 04:30 Lipase 72 Units/L (73-393) L 11/21/19 20:45 Specimen Type Clean catch urine 11/22/19 02:50 Urine Color Pale yellow (YELLOW) 11/22/19 02:50 Urine Appearance Cloudy (CLEAR) 11/22/19 02:50 Urine pH 6.0 (5.0 - 8.0) 11/22/19 02:50 Ur Specific [place] 1.010 (1.000-1.030) 11/22/19 02:50 Urine Protein 2+ (NEGATIVE) 11/22/19 02:50 Urine Glucose (UA) Negative (NEGATIVE) 11/22/19 02:50 Urine Ketones Negative (NEGATIVE) 11/22/19 02:50 Urine Occult Blood 4+ (NEGATIVE) 11/22/19 02:50 Urine Nitrite Positive (NEGATIVE) 11/22/19 02:50 Urine Bilirubin Negative (NEGATIVE) 11/22/19 02:50 Urine Urobilinogen Normal (NORMAL) 11/22/19 02:50 Ur Leukocyte Esterase 3+ (NEGATIVE) 11/22/19 02:50 Urine RBC 0-2 /HPF (0-3) 11/22/19 02:50 Urine WBC Tntc /HPF (0-5) A 11/22/19 02:50 Ur Squamous Epith Cells Few /HPF (NEGATIVE) 11/22/19 02:50 Urine Bacteria 3+ /HPF (NEGATIVE) 11/22/19 02:50 Ur Culture Indicated? Yes/culture set up 11/22/19 02:50 Ur Random Sodium 29 mmol/L (40-220) L 11/22/19 02:50 Urine Creatinine 75.47 mg/dL (29-226) 11/22/19 02:50 SARS-CoV-2 (PCR) Negative (NEGATIVE) 11/21/19 23:45 Plan (1) Sepsis: Status: Acute Qualifiers: Acute renal failure type: unspecified Sepsis acute organ dysfunction status: with acute organ dysfunction Sepsis type: sepsis due to unspecified organism Severe sepsis acute organ dysfunction type: acute renal failure Severe sepsis shock status: unspecified Qualified Code(s): A41.9 - Sepsis, unspecified organism; R65.20 - Severe sepsis without septic shock; N17.9 - Acute kidney failure, unspecified Plan: NS AT 125 ML/HR, THE POTASSIUM PROTOCOL, ZOFRAN 4MG IV Q6H PRN, LEVAQUIN 750MG IV DAILY, FORTAZ 1G IV DAILY, AND TORADOL 30MG IV Q8H (2) Leukocytosis: Status: Acute Qualifiers: Leukocytosis type: unspecified Qualified Code(s): D72.829 - Elevated white blood cell count, unspecified (3) UTI (urinary tract infection): Status: Acute Qualifiers: Hematuria presence: with hematuria Urinary tract infection type: site unspecified Qualified Code(s): N39.0 - Urinary tract infection, site not specified; R31.9 - Hematuria, unspecified (4) Hypokalemia: Status: Acute (5) Acute hyponatremia: Status: Acute (6) Hypomagnesemia: Status: Acute
[2019-11-24] MEDS: TORADOL 30 MG VIAL IVP SCH ×3 (03:52→18:32)
[2019-11-24] MEDS: NS 1000 ML 1,000 ML IV SCH ×5 (05:47→22:21)
[2019-11-24] MEDS: FORTAZ or TAZICEF VIAL INJ 1 G in NS 100 ML IV + SPIKE MINIBAG* 100 ML IV SCH ×3 (06:03→22:22)
[2019-11-24 08:30] LABS: BASOPHILS # (AUTO) 0.1 X10^3/uL (0.0-0.1); BASOPHILS % (AUTO) 0.8 % (0.2-1.0); EOSINOPHILS # (AUTO) 0.1 x10^3/uL (0.0-0.2); EOSINOPHILS % (AUTO) 0.6 % (0.9-2.9); HEMATOCRIT 30.5 % (36.0-47.0); HEMOGLOBIN 10.4 g/dL (12.0-16.0); LYMPHOCYTES # (AUTO) 2.4 X10^3/uL (1.3-2.9); LYMPHOCYTES % (AUTO) 23.7 % (21.0-51.0); MEAN CORPUSCULAR HEMOGLOBIN 28.6 pg (27.0-34.0); MEAN CORPUSCULAR HGB CONC 34.2 g/dL (33.0-35.0); MEAN CORPUSCULAR VOLUME 83.7 fL (80.0-100.0); MEAN PLATELET VOLUME 9.6 fL (7.4-11.0); MONOCYTES # (AUTO) 1.1 x10^3/uL (0.3-0.8); MONOCYTES % (AUTO) 10.9 % (0.0-13.0); NEUTROPHILS # (AUTO) 6.6 x10^3/uL (2.2-4.8); PLATELET COUNT 281 X10^3/uL (150.0-450.0); RED BLOOD COUNT 3.65 X10^6/uL (3.5-5.4); RED CELL DISTRIBUTION WIDTH 15.3 % (11.6-16.5); WHITE BLOOD COUNT 10.3 X10^3/uL (3.6-10.0)
[2019-11-24 09:00] LABS: ALANINE AMINOTRANSFERASE 35 Units/L (12-78); ALBUMIN 2.1 g/dL (3.4-5.0); ALKALINE PHOSPHATASE 75 Units/L (46-116); ASPARTATE AMINO TRANSFERASE 22 Units/L (15-37); BLOOD UREA NITROGEN 9 mg/dL (7-18); CALCIUM 8.1 mg/dL (8.5-10.1); CHLORIDE 108 mmol/L (98-107); COR CA(FOR HYPOALB) 9.6 mg/dL (8.5-10.1); CREATININE 1.11 mg/dL (0.55-1.02); SODIUM 139 mmol/L (136-145); TOTAL PROTEIN 5.6 g/dL (6.4-8.2); eGFR NON BLACK RACES > 60 (>60)
[2019-11-24] MEDS: LEVAQUIN PREMIX IV 750 MG 750 MG/150 ML BAG IV SCH (09:59)
--- NOTE | 2019-11-24 11:43 | PCM.PROG ---
Progress Note Progress Note for Day of Date of Exam: 11/24/19 Subjective Subjective: PT IS A 29 Y/O F ADMITTED FOR SEPSIS, UTI, DUGLAS, AND HYPONATREMIA. PT IS FEELING BETTER THIS MORNING, NO ACUTE EVENTS OVERNIGHT. LABS/IMAGING: WBC 10.9>10.3, HGB 10.4, PLT 281, NA 139, K 3.4, CR 1.40>1.11, GLUC 109, URINE CX AND BLOOD CX NGTD. CONTINUE ABX LEVAQUIN 750MG IV DAILY, FORTAZ 1G IV DAILY, AND TORADOL 30MG IV Q8H. SHE IS ON IVF NS@125ML/H. CONTINUE TO MONITOR AND FOLLOW UP LABS/IMAGING IN THE MORNING. Past Medical Family Social History Past Med/Fam/Surg Hx: No changes since H&P Allergies: Allergies No Known Drug Allergies Allergy (Verified 11/21/19 18:01) Review of Systems ROS: No change since H&P Vital Signs and I&O's Vital Signs: Temperature 98.3 F Pulse Rate [Left] 89 Pulse Rate 118 Respiratory Rate 19 Blood Pressure [Right Arm] 111/65 Blood Pressure [Left Arm] 101/61 Blood Pressure 110/88 O2 Sat by Pulse Oximetry 100 Intake and Output: Intake & Output 11/21/19 11/22/19 11/23/19 11/24/19 23:59 23:59 23:59 23:59 Intake Total 3969 / 3969 3380 / 3380 1310 / 1310 Balance 3969 / 3969 3380 / 3380 1310 / 1310 Physical Exam Oriented: Normal Eyes: Normal Ear: Normal Nose: Normal Throat: Normal Respiratory: Normal Cardiovascular: Normal : Normal Auscultation: Bowel Sounds: Normal Tenderness: Suprapubic and Mild Skin: Normal Musculoskeletal: Normal Psychiatric: Normal Mood Description: Calm Affect: Normal Speech Pattern: Clear and Appropriate Laboratory and Diagnostics Result Diagrams: 11/24/19 07:25 11/24/19 07:25 Labs: 11/22/19 02:50 Urine,Clean Catch Urine Culture - Final 11/21/19 20:52 Blood Blood Culture - Preliminary 11/21/19 20:45 Blood Blood Culture - Preliminary Laboratory WBC 10.3 X10^3/uL (3.6-10.0) H 11/24/19 07:25 RBC 3.65 X10^6/uL (3.5-5.4) 11/24/19 07:25 Hgb 10.4 g/dL (12.0-16.0) L 11/24/19 07:25 Hct 30.5 % (36.0-47.0) L 11/24/19 07:25 MCV 83.7 fL (80.0-100.0) 11/24/19 07:25 MCH 28.6 pg (27.0-34.0) 11/24/19 07:25 MCHC 34.2 g/dL (33.0-35.0) 11/24/19 07:25 RDW 15.3 % (11.6-16.5) 11/24/19 07:25 Plt Count 281 X10^3/uL (150.0-450.0) 11/24/19 07:25 Plt Count Comment Adequate (ADEQUATE) 11/22/19 03:59 MPV 9.6 fL (7.4-11.0) 11/24/19 07:25 Neut % (Auto) 64.0 % (42.0-75.0) 11/24/19 07:25 Lymph % (Auto) 23.7 % (21.0-51.0) 11/24/19 07:25 [place] % (Auto) 10.9 % (0.0-13.0) 11/24/19 07:25 Eos % (Auto) 0.6 % (0.9-2.9) L 11/24/19 07:25 Baso % (Auto) 0.8 % (0.2-1.0) 11/24/19 07:25 Neut # (Auto) 6.6 x10^3/uL (2.2-4.8) H 11/24/19 07:25 Lymph # (Auto) 2.4 X10^3/uL (1.3-2.9) 11/24/19 07:25 [place] # (Auto) 1.1 x10^3/uL (0.3-0.8) H 11/24/19 07:25 Eos # (Auto) 0.1 x10^3/uL (0.0-0.2) 11/24/19 07:25 Baso # (Auto) 0.1 X10^3/uL (0.0-0.1) 11/24/19 07:25 Absolute Nucleated RBC 0.0 /100WBC 11/24/19 07:25 Total Counted 100 11/22/19 03:59 Neutrophils % (Manual) 85 % (39-76) H 11/22/19 03:59 Band Neutrophils % 7 % (0-10) 11/21/19 20:45 Lymphocytes % (Manual) 11 % (13-43) L 11/22/19 03:59 Monocytes % (Manual) 4 % (4-9) 11/22/19 03:59 Metamyelocytes % 1 11/21/19 20:45 Myelocytes % 1 11/21/19 20:45 Plt Morphology Comment Normal (NORMAL) 11/22/19 03:59 RBC Morphology Normal (NORMAL) 11/22/19 03:59 Sodium 139 mmol/L (136-145) 11/24/19 07:25 Corrected Sodium TNP 11/24/19 07:25 Potassium 3.4 mmol/L (3.5-5.1) L 11/24/19 07:25 Chloride 108 mmol/L (98-107) H 11/24/19 07:25 Carbon Dioxide 24.0 mmol/L (21-32) 11/24/19 07:25 BUN 9 mg/dL (7-18) 11/24/19 07:25 Creatinine 1.11 mg/dL (0.55-1.02) H 11/24/19 07:25 Est GFR (MDRD) Af Amer > 60 (>60) 11/24/19 07:25 Est GFR (MDRD) Non-Af > 60 (>60) 11/24/19 07:25 Glucose 109 mg/dL (65-99) H 11/24/19 07:25 Lactic Acid 1.1 mmol/L (0.4-2.0) 11/22/19 01:09 Calcium 8.1 mg/dL (8.5-10.1) L 11/24/19 07:25 Corrected Calcium 9.6 mg/dL (8.5-10.1) 11/24/19 07:25 Magnesium 2.3 mg/dL (1.7-2.9) 11/22/19 03:59 Total Bilirubin 0.20 mg/dL (0.2-1.0) 11/24/19 07:25 AST 22 Units/L (15-37) 11/24/19 07:25 ALT 35 Units/L (12-78) 11/24/19 07:25 Alkaline Phosphatase 75 Units/L (46-116) 11/24/19 07:25 C-Reactive Protein 211.20 mg/L (0-3.0) H 11/23/19 04:30 Total Protein 5.6 g/dL (6.4-8.2) L 11/24/19 07:25 Albumin 2.1 g/dL (3.4-5.0) L 11/24/19 07:25 Globulin 3.5 g/dL (2.5-4.5) 11/24/19 07:25 Albumin/Globulin Ratio 0.6 Ratio (1.1-2.1) L 11/24/19 07:25 Lipase 72 Units/L (73-393) L 11/21/19 20:45 Specimen Type Clean catch urine 11/22/19 02:50 Urine Color Pale yellow (YELLOW) 11/22/19 02:50 Urine Appearance Cloudy (CLEAR) 11/22/19 02:50 Urine pH 6.0 (5.0 - 8.0) 11/22/19 02:50 Ur Specific [place] 1.010 (1.000-1.030) 11/22/19 02:50 Urine Protein 2+ (NEGATIVE) 11/22/19 02:50 Urine Glucose (UA) Negative (NEGATIVE) 11/22/19 02:50 Urine Ketones Negative (NEGATIVE) 11/22/19 02:50 Urine Occult Blood 4+ (NEGATIVE) 11/22/19 02:50 Urine Nitrite Positive (NEGATIVE) 11/22/19 02:50 Urine Bilirubin Negative (NEGATIVE) 11/22/19 02:50 Urine Urobilinogen Normal (NORMAL) 11/22/19 02:50 Ur Leukocyte Esterase 3+ (NEGATIVE) 11/22/19 02:50 Urine RBC 0-2 /HPF (0-3) 11/22/19 02:50 Urine WBC Tntc /HPF (0-5) A 11/22/19 02:50 Ur Squamous Epith Cells Few /HPF (NEGATIVE) 11/22/19 02:50 Urine Bacteria 3+ /HPF (NEGATIVE) 11/22/19 02:50 Ur Culture Indicated? Yes/culture set up 11/22/19 02:50 Ur Random Sodium 29 mmol/L (40-220) L 11/22/19 02:50 Urine Creatinine 75.47 mg/dL (29-226) 11/22/19 02:50 SARS-CoV-2 (PCR) Negative (NEGATIVE) 11/21/19 23:45 Plan (1) Sepsis: Status: Acute Qualifiers: Acute renal failure type: unspecified Sepsis acute organ dysfunction status: with acute organ dysfunction Sepsis type: sepsis due to unspecified organism Severe sepsis acute organ dysfunction type: acute renal failure Severe sepsis shock status: unspecified Qualified Code(s): A41.9 - Sepsis, unspecified organism; R65.20 - Severe sepsis without septic shock; N17.9 - Acute kidney failure, unspecified Plan: NS AT 125 ML/HR, THE POTASSIUM PROTOCOL, ZOFRAN 4MG IV Q6H PRN, LEVAQUIN 750MG IV DAILY, FORTAZ 1G IV DAILY, AND TORADOL 30MG IV Q8H (2) Leukocytosis: Status: Acute Qualifiers: Leukocytosis type: unspecified Qualified Code(s): D72.829 - Elevated white blood cell count, unspecified (3) UTI (urinary tract infection): Status: Acute Qualifiers: Hematuria presence: with hematuria Urinary tract infection type: site unspecified Qualified Code(s): N39.0 - Urinary tract infection, site not specified; R31.9 - Hematuria, unspecified (4) Hypokalemia: Status: Acute (5) Acute hyponatremia: Status: Acute (6) Hypomagnesemia: Status: Acute
[2019-11-24] MEDS: K-DUR TAB 20 MEQ PO PRN (17:35)
[2019-11-25] MEDS: TORADOL 30 MG VIAL IVP SCH ×2 (03:39→10:37)
[2019-11-25] MEDS: NS 1000 ML 1,000 ML IV SCH ×2 (03:40→05:39)
[2019-11-25] MEDS: FORTAZ or TAZICEF VIAL INJ 1 G in NS 100 ML IV + SPIKE MINIBAG* 100 ML IV SCH (05:39)
[2019-11-25 06:18] LABS: BASOPHILS # (AUTO) 0.1 X10^3/uL (0.0-0.1); BASOPHILS % (AUTO) 0.6 % (0.2-1.0); EOSINOPHILS # (AUTO) 0.2 x10^3/uL (0.0-0.2); HEMATOCRIT 31.9 % (36.0-47.0); HEMOGLOBIN 10.9 g/dL (12.0-16.0); LYMPHOCYTES # (AUTO) 2.7 X10^3/uL (1.3-2.9); LYMPHOCYTES % (AUTO) 29.5 % (21.0-51.0); MEAN CORPUSCULAR HEMOGLOBIN 28.4 pg (27.0-34.0); MEAN CORPUSCULAR VOLUME 83.3 fL (80.0-100.0); MEAN PLATELET VOLUME 8.3 fL (7.4-11.0); MONOCYTES # (AUTO) 0.8 x10^3/uL (0.3-0.8); MONOCYTES % (AUTO) 8.9 % (0.0-13.0); NEUTROPHILS # (AUTO) 5.4 x10^3/uL (2.2-4.8); PLATELET COUNT 377 X10^3/uL (150.0-450.0); RED BLOOD COUNT 3.83 X10^6/uL (3.5-5.4); RED CELL DISTRIBUTION WIDTH 15.4 % (11.6-16.5); WHITE BLOOD COUNT 9.2 X10^3/uL (3.6-10.0)
[2019-11-25 06:41] LABS: ALANINE AMINOTRANSFERASE 38 Units/L (12-78); ALBUMIN 2.1 g/dL (3.4-5.0); ALKALINE PHOSPHATASE 82 Units/L (46-116); ASPARTATE AMINO TRANSFERASE 27 Units/L (15-37); BLOOD UREA NITROGEN 12 mg/dL (7-18); CALCIUM 8.4 mg/dL (8.5-10.1); CARBON DIOXIDE 24.1 mmol/L (21-32); CHLORIDE 107 mmol/L (98-107); COR CA(FOR HYPOALB) 9.9 mg/dL (8.5-10.1); CREATININE 1.17 mg/dL (0.55-1.02); SODIUM 139 mmol/L (136-145); TOTAL PROTEIN 5.8 g/dL (6.4-8.2); eGFR NON BLACK RACES 58 (>60)
[2019-11-25 08:00] VITALS: BP 129/88
[2019-11-25] MEDS: LEVAQUIN PREMIX IV 750 MG 750 MG/150 ML BAG IV SCH (08:36)
[2019-11-25] MEDS ORDERED: PHARMACY COMMENT IV NR (20:30)
== END 2019-11-25 10:45 | disposition home or self-care (01) | DRG 872 ==
LOC: ER 17:58 → MED/SURG 11-22 00:47
PROVIDERS: ADMIT Internal Medicine; ATTEND Internal Medicine
DX: N39.0 Urinary tract infection, site not specified; Z11.59 Encounter for screening for other viral diseases; N17.8 Other acute kidney failure; A41.89 Other specified sepsis; R65.20 Severe sepsis without septic shock; R31.9 Hematuria, unspecified; E87.1 Hypo-osmolality and hyponatremia; Z87.442 Personal history of urinary calculi
CPT/HCPCS: 36415; 71010; 71045; 74176; 80053; 81001; 82570; 83605; 83690; 83735; 84132; 84300; 85025; 86140; 87040; 87086; 87635; 96365; 96367; 99285; A4222; J0713; J0744; J1885; J1956; J2185; J2405; J3370; J3475; J7030; J7050